=== PATIENT | male | born 1985 | race Caucasian/White ===

== ENCOUNTER → 2017-03-02 | Outpatient (CLI) | payer OTHER ==
--- NOTE | 2017-03-02 08:16 | US ---
EXAMINATION TYPE: US liver DATE OF EXAM: 03/02/2017 7:44 AM COMPARISON: No previous CLINICAL HISTORY: B18.2 Chronic Viral Hep C. Chronic viral hep C EXAM MEASUREMENTS: Liver Length: 15.5 cm Gallbladder Wall: 0.3 cm CBD: 0.3 cm Right Kidney: 10.5 x 4.8 x 5.4 cm Pancreas: wnl Liver: wnl Gallbladder: multiple hyperechoic mobile foci seen Evidence for sonographic Garcia's sign: no CBD: visualized portions wnl, limited by overlying bowel gas Right Kidney: wnl IMPRESSION: 1. Uncomplicated cholelithiasis.
== END | disposition home or self-care (01) ==
LOC: RADUSWWP 07:22
PROVIDERS: ATTEND Internal Medicine Gastroenterology
DX: K80.20 Calculus of gallbladder without cholecystitis without obstruction (principal); B18.2 Chronic viral hepatitis C
CPT/HCPCS: 76705

== ENCOUNTER 2017-03-18 23:11 | Inpatient (IN) | payer MEDICAID, OTHER ==
--- NOTE | 2017-03-18 23:44 | ED ---
Psych HPI - General Chief Complaint: Psychiatric Symptoms Stated Complaint: Mental health Time Seen by Provider: 03/18/17 23:25 Source: patient, RN notes reviewed Mode of arrival: ambulatory - History of Present Illness Initial Comments: 31 yo male presents to the ER with cc of suicidal thoughts. Patient states that he is a heroin drug addict. Patient states that he wants to off the drugs however he has no money so he is making choices that he does not want to me which is making him want to be other than living. Patient states that he has a history of depression that he was diagnosed with depression but did not take Take medication for it. Patient states he did not know where else to turn and that is why he is here.Patient denies any recent fever, chills, shortness of breath, chest pain, back pain, abdominal pain, nausea vomiting, numbness or tingling, dysuria or hematuria, constipation or diarrhea, headaches or visual changes, or any other current symptoms. - Related Data Home Medications Medication Instructions Recorded Confirmed Acyclovir [Zovirax] 200 mg PO TID 03/19/17 03/19/17 Previous Rx's Medication Instructions Recorded Escitalopram [Lexapro] 10 mg PO DAILY #30 tab 03/22/17 Gabapentin [Neurontin] 200 mg PO TID #90 cap 03/22/17 Nicotine 21Mg/24Hr Patch [Habitrol] 1 patch TRANSDERM DAILY #12 patch 03/22/17 Allergies Allergy/AdvReac Type Severity Reaction Status Date / Time No Known Allergies Allergy Verified 03/19/17 04:47 Review of Systems ROS Statement: Those systems with pertinent positive or pertinent negative responses have been documented in the HPI. ROS Other: All systems not noted in ROS Statement are negative. Past Medical History Additional Past Medical History / Comment(s): hep c , History of Any Multi-Drug Resistant Organisms: None Reported Past Surgical History: Orthopedic Surgery Additional Past Surgical History / Comment(s): lt wrist Past Psychological History: Anxiety, Depression Smoking Status: Current every day smoker Past Alcohol Use History: Abuse, Daily Past Drug Use History: Heroin, Opiates, Prescription Drug Abuse General Exam Limitations: no limitations General appearance: alert, in no apparent distress Head exam: Present: atraumatic, normocephalic, normal inspection ENT exam: Present: normal exam, mucous membranes moist Neck exam: Present: normal inspection. Absent: tenderness, meningismus, lymphadenopathy Respiratory exam: Present: normal lung sounds bilaterally. Absent: respiratory distress, wheezes, rales, rhonchi, stridor Cardiovascular Exam: Present: regular rate, normal rhythm, normal heart sounds. Absent: systolic murmur, diastolic murmur, rubs, gallop, clicks Back exam: Present: normal inspection Neurological exam: Present: alert, oriented X3 Psychiatric exam: Present: normal affect, normal mood Skin exam: Present: warm, dry, intact, normal color. Absent: rash Course Vital Signs 03/18/17 03/19/17 23:17 03:09 Temperature 98.9 F 97.0 F L Pulse Rate 77 90 Respiratory 18 18 Rate Blood Pressure 144/87 128/59 O2 Sat by Pulse 100 97 Oximetry - Reevaluation(s) Reevaluation #1: 03/19/17 00:57 This case will be signed out to Dr. Liu. Medical Decision Making - Medical Decision Making 31-year-old male presents to the emergency department with a chief complaint of suicidal thoughts. At this time the patient does not appear to have any acute medical emergencies. The patient is cleared to be evaluated by psychiatry. - Lab Data Result diagrams: 03/19/17 02:09 03/19/17 02:09 Lab Results 03/19/17 03/19/17 03/19/17 Range/Units 00:45 02:09 02:09 WBC 8.8 (3.8-10.6) k/uL RBC 5.08 (4.30-5.90) m/uL Hgb 15.3 (13.0-17.5) gm/dL Hct 45.3 (39.0-53.0) % MCV 89.1 (80.0-100.0) fL MCH 30.1 (25.0-35.0) pg MCHC 33.7 (31.0-37.0) g/dL RDW 13.0 (11.5-15.5) % Plt Count 164 (150-450) k/uL Neutrophils % 69 % Lymphocytes % 21 % Monocytes % 4 % Eosinophils % 4 % Basophils % 0 % Neutrophils # 6.1 (1.3-7.7) k/uL Lymphocytes # 1.8 (1.0-4.8) k/uL Monocytes # 0.4 (0-1.0) k/uL Eosinophils # 0.3 (0-0.7) k/uL Basophils # 0.0 (0-0.2) k/uL Sodium 138 (137-145) mmol/L Potassium 4.1 (3.5-5.1) mmol/L Chloride 103 (98-107) mmol/L Carbon Dioxide 27 (22-30) mmol/L Anion Gap 8 mmol/L BUN 11 (9-20) mg/dL Creatinine 0.90 (0.66-1.25) mg/dL Est GFR (MDRD) Af Amer >60 (>60 ml/min/1.73 sqM) Est GFR (MDRD) Non-Af >60 (>60 ml/min/1.73 sqM) Glucose 130 H (74-99) mg/dL Calcium 9.4 (8.4-10.2) mg/dL TSH (0.465-4.680) mIU/L Urine Opiates Screen Detected H (NotDetected) Ur Oxycodone Screen Not Detected (NotDetected) Urine Methadone Screen Not Detected (NotDetected) Ur Propoxyphene Screen Not Detected (NotDetected) Ur Barbiturates Screen Not Detected (NotDetected) U Tricyclic Antidepress Not Detected (NotDetected) Ur Phencyclidine Scrn Not Detected (NotDetected) Ur Amphetamines Screen Not Detected (NotDetected) U Methamphetamines Scrn Not Detected (NotDetected) U Benzodiazepines Scrn Not Detected (NotDetected) Urine Cocaine Screen Not Detected (NotDetected) U Marijuana (THC) Screen Not Detected (NotDetected) 03/19/17 Range/Units 02:09 WBC (3.8-10.6) k/uL RBC (4.30-5.90) m/uL Hgb (13.0-17.5) gm/dL Hct (39.0-53.0) % MCV (80.0-100.0) fL MCH (25.0-35.0) pg MCHC (31.0-37.0) g/dL RDW (11.5-15.5) % Plt Count (150-450) k/uL Neutrophils % % Lymphocytes % % Monocytes % % Eosinophils % % Basophils % % Neutrophils # (1.3-7.7) k/uL Lymphocytes # (1.0-4.8) k/uL Monocytes # (0-1.0) k/uL Eosinophils # (0-0.7) k/uL Basophils # (0-0.2) k/uL Sodium (137-145) mmol/L Potassium (3.5-5.1) mmol/L Chloride (98-107) mmol/L Carbon Dioxide (22-30) mmol/L Anion Gap mmol/L BUN (9-20) mg/dL Creatinine (0.66-1.25) mg/dL Est GFR (MDRD) Af Amer (>60 ml/min/1.73 sqM) Est GFR (MDRD) Non-Af (>60 ml/min/1.73 sqM) Glucose (74-99) mg/dL Calcium (8.4-10.2) mg/dL TSH 0.854 (0.465-4.680) mIU/L Urine Opiates Screen (NotDetected) Ur Oxycodone Screen (NotDetected) Urine Methadone Screen (NotDetected) Ur Propoxyphene Screen (NotDetected) Ur Barbiturates Screen (NotDetected) U Tricyclic Antidepress (NotDetected) Ur Phencyclidine Scrn (NotDetected) Ur Amphetamines Screen (NotDetected) U Methamphetamines Scrn (NotDetected) U Benzodiazepines Scrn (NotDetected) Urine Cocaine Screen (NotDetected) U Marijuana (THC) Screen (NotDetected) Disposition Clinical Impression: Depression Disposition: TRANSFER TO PSYCH HOSP/UNIT Condition: Stable
[2017-03-19 02:36] LABS: Anion Gap 8 mmol/L; Blood Urea Nitrogen 11 mg/dL (9-20); Calcium 9.4 mg/dL (8.4-10.2); Carbon Dioxide 27 mmol/L (22-30); Chloride 103 mmol/L (98-107); Glucose 130 mg/dL (74-99); Non-African American GFR(MDRD) >60 (>60 ml/min/1.73 sqM); Potassium 4.1 mmol/L (3.5-5.1); Sodium 138 mmol/L (137-145)
[2017-03-19 02:38] LABS: Basophils % (A) 0 %; Eosinophils # (A) 0.3 k/uL (0-0.7); Eosinophils % (A) 4 %; HCT 45.3 % (39.0-53.0); HDW 2.93; HGB 15.3 gm/dL (13.0-17.5); Luc # (Auto) 0.16; Luc % (Auto) 2; Lymphocytes # (A) 1.8 k/uL (1.0-4.8); Lymphocytes % (A) 21 %; MCH 30.1 pg (25.0-35.0); MCHC 33.7 g/dL (31.0-37.0); MCV 89.1 fL (80.0-100.0); Mean Platelet Volume 7.9; Monocytes # (A) 0.4 k/uL (0-1.0); Monocytes % (A) 4 %; Neutrophils # (A) 6.1 k/uL (1.3-7.7); Neutrophils % (A) 69 %; RBC 5.08 m/uL (4.30-5.90); WBC 8.8 k/uL (3.8-10.6); WBC (Perox) 8.85
[2017-03-19] MEDS ORDERED: ZIPRASIDONE 20 MG VIAL IM PRN (04:10)
[2017-03-19] MEDS ORDERED: MAG HYDROX/AL HYDROX/SIMETH 30 ML CUP PO PRN (04:10)
[2017-03-19] MEDS ORDERED: MAGNESIUM HYDROXIDE 2,400 MG/10 ML CUP PO PRN (04:10)
[2017-03-19] MEDS ORDERED: ACETAMINOPHEN TAB 325 MG TAB PO PRN (04:10)
[2017-03-19] MEDS ORDERED: LORazepam 2 MG/ML SYRINGE IM PRN (04:17)
[2017-03-19 04:44] VITALS: BMI 21.3
[2017-03-19] MEDS: ACYCLOVIR 200 MG CAP PO SCH ×3 (08:47→20:46)
[2017-03-19] MEDS: LORazepam 1 MG TAB PO PRN ×3 (08:49→20:47)
[2017-03-19] MEDS: NICOTINE 21MG/24HR PATCH TRANSDERM SCH ×2 (08:49→15:52)
[2017-03-19] MEDS: GABAPENTIN 100 MG CAP PO SCH ×3 (08:49→20:46)
[2017-03-19] MEDS ORDERED: LOPERAMIDE 2 MG CAP PO PRN (15:48)
[2017-03-19] MEDS: ESCITALOPRAM 10 MG TAB PO SCH (15:57)
[2017-03-19] MEDS: cloNIDine HCL 0.1 MG TAB PO PRN ×2 (15:57→20:50)
--- NOTE | 2017-03-19 16:01 | P.HP ---
Psychiatric H&P - . H&P Date: 03/19/17 History & Physical: Allergies Allergy/AdvReac Type Severity Reaction Status Date / Time No Known Allergies Allergy Verified 03/19/17 04:47 Vital Signs Temp 97.8 F 03/19/17 04:07 Pulse 74 03/19/17 04:07 Resp 20 03/19/17 04:07 BP 119/76 03/19/17 04:07 Pulse Ox 97 03/19/17 03:09 Intake & Output 03/18/17 03/19/17 03/19/17 18:59 06:59 18:59 Weight 65.5 kg Laboratory Last Values WBC 8.8 k/uL (3.8-10.6) 03/19/17 02:09 RBC 5.08 m/uL (4.30-5.90) 03/19/17 02:09 Hgb 15.3 gm/dL (13.0-17.5) 03/19/17 02:09 Hct 45.3 % (39.0-53.0) 03/19/17 02:09 MCV 89.1 fL (80.0-100.0) 03/19/17 02:09 MCH 30.1 pg (25.0-35.0) 03/19/17 02:09 MCHC 33.7 g/dL (31.0-37.0) 03/19/17 02:09 RDW 13.0 % (11.5-15.5) 03/19/17 02:09 Plt Count 164 k/uL (150-450) 03/19/17 02:09 Neutrophils % 69 % 03/19/17 02:09 Lymphocytes % 21 % 03/19/17 02:09 Monocytes % 4 % 03/19/17 02:09 Eosinophils % 4 % 03/19/17 02:09 Basophils % 0 % 03/19/17 02:09 Neutrophils # 6.1 k/uL (1.3-7.7) 03/19/17 02:09 Lymphocytes # 1.8 k/uL (1.0-4.8) 03/19/17 02:09 Monocytes # 0.4 k/uL (0-1.0) 03/19/17 02:09 Eosinophils # 0.3 k/uL (0-0.7) 03/19/17 02:09 Basophils # 0.0 k/uL (0-0.2) 03/19/17 02:09 Sodium 138 mmol/L (137-145) 03/19/17 02:09 Potassium 4.1 mmol/L (3.5-5.1) 03/19/17 02:09 Chloride 103 mmol/L (98-107) 03/19/17 02:09 Carbon Dioxide 27 mmol/L (22-30) 03/19/17 02:09 Anion Gap 8 mmol/L 03/19/17 02:09 BUN 11 mg/dL (9-20) 03/19/17 02:09 Creatinine 0.90 mg/dL (0.66-1.25) 03/19/17 02:09 Est GFR (MDRD) Af Amer >60 (>60 ml/min/1.73 sqM) 03/19/17 02:09 Est GFR (MDRD) Non-Af >60 (>60 ml/min/1.73 sqM) 03/19/17 02:09 Glucose 130 mg/dL (74-99) H 03/19/17 02:09 Calcium 9.4 mg/dL (8.4-10.2) 03/19/17 02:09 TSH 0.854 mIU/L (0.465-4.680) 03/19/17 02:09 Urine Opiates Screen Detected (NotDetected) H 03/19/17 00:45 Ur Oxycodone Screen Not Detected (NotDetected) 03/19/17 00:45 Urine Methadone Screen Not Detected (NotDetected) 03/19/17 00:45 Ur Propoxyphene Screen Not Detected (NotDetected) 03/19/17 00:45 Ur Barbiturates Screen Not Detected (NotDetected) 03/19/17 00:45 U Tricyclic Antidepress Not Detected (NotDetected) 03/19/17 00:45 Ur Phencyclidine Scrn Not Detected (NotDetected) 03/19/17 00:45 Ur Amphetamines Screen Not Detected (NotDetected) 03/19/17 00:45 U Methamphetamines Scrn Not Detected (NotDetected) 03/19/17 00:45 U Benzodiazepines Scrn Not Detected (NotDetected) 03/19/17 00:45 Urine Cocaine Screen Not Detected (NotDetected) 03/19/17 00:45 U Marijuana (THC) Screen Not Detected (NotDetected) 03/19/17 00:45 03/19/17 15:49 IDENTIFYING DATA: 31-year-old single male patient HPI: Patient admitted to the inpatient psychiatric unit on a voluntary basis. He states that he was trying to stop using heroin and alcohol and he couldn't get into detox. He says that he had thoughts that he would rather than live like that. he was admitted to the inpatient psychiatric unit for concerns of his safety. He says it's almost 24 hours since he used heroin. He relates that his mood recently was getting agitated and he found himself apologizing to people. He admits to being a worrier and worries a lot. He does admit to some history of depression and some history of panic attacks in the past. PAST PSYCHIATRIC HISTORY: He has been to [facility] in the past for anxiety and depression, saw a counselor a few times. He has not had any history of inpatient psychiatric treatment. Says he has had overdose of heroin a few times as a suicide attempt. He thinks that he took Zoloft as a teenager PMH: Hepatitis C ALLERGIES: no known ALLERGIES MEDICATIONS: Tylenol When necessary, Zovirax, Maalox when necessary, Neurontin, Ativan when necessary, milk of magnesia when necessary, Habitrol, Geodon when necessary CHEMICAL DEPENDENCY HISTORY: Patient reports that he was using heroin daily. He had 6 months clean and then relapsed a couple of months ago. He has been to [facility] in the past. He has been drinking alcohol between 2 pints and a fifth. He denies any significant alcohol withdrawal symptoms other than a little bit shaky and states he is having some hot flashes and cold flashes from heroin withdrawal. FAMILY PSYCHIATRIC HISTORY: None significant known. FAMILY CHEMICAL DEPENDENCY HISTORY: Father with alcoholism SOCIAL HISTORY: Lives in an apartment on his own. He works for [employer]. Was working 7 days a week at one point and now 5 days a week. He is single he has a 2-1/2-year-old son. He still does date his son's mom. He does not have any siblings. MENTAL STATUS EXAM: He is alert and cooperative with the interview. His speech is fluent, not rapid or pressured. His thought processes are organized. His mood is described as "doing okay for the circumstances." He relates that he had been having some thoughts that he would rather than live like he was, denies any current thoughts of harm to self or others. He denies any auditory or visual hallucinations. He denies any paranoid thoughts. No active evidence of psychosis. I do not note any significant disorientation or memory disturbance. His insight is adequate, judgment shows evidence of recent impairment. STRENGTHS/WEAKNESSES: Strengths-employed, seeking treatment; weaknesses-coping skills INTELLECTUAL FUNCTIONING: Average IMPRESSIONS: Unspecified depressive disorder; unspecified anxiety disorder; opioid use disorder; alcohol use disorder PLAN: Patient be admitted to the inpatient psychiatric unit [facility] on a voluntary basis. He'll be placed on SP 15 minute precautions. Baseline laboratory workup done the patient and medical consultation will be ordered. We'll initiate Lexapro 10 more grams daily for depression and anxiety components. Ordered clonidine and Imodium when necessary's for opioid withdrawal symptoms. We did discuss treatment option of looking at going into rehab/detox after he has been stabilized in the inpatient psychiatric unit. We will monitor for any opioid/alcohol withdrawal symptoms. He is on Ativan as needed for any alcohol withdrawal. Dr. Bueno will initiate care this patient starting on Tuesday. We'll continue to cover this patient for Dr. Bueno through the weekend. Estimated length of stay 3-5 days. Prognosis is guarded.
--- NOTE | 2017-03-19 19:28 | CONS ---
DATE OF CONSULTATION: Patient is a 31-year-old is admitted for suicidal ideations. REASON FOR CONSULTATION: Heroin addict and consult for heroin withdrawal. Patient is a 31-year-old admitted to the hospital with suicidal ideations and patient last heroin was yesterday. The patient has history of hepatitis C. Patient is concerned that he may have heroin withdrawals. Patient denied any diarrhea. Patient is not excessively sweating. Patient does not have any other withdrawals and patient pupils are equally reacting and patient does not have any ( ). Although patient is requesting for opiates for withdrawals, patient at this point of time, does not have any withdrawals. My recommendations is to watch for withdrawals. If she has any withdrawals, then we can address with intravenous opiates and patient states he is an alcoholic as well started drinking alcohol about 3 months ago and did not give me exact. Patient drinks about a fifth of whiskey. He is concerned about those withdrawals as well. We will watch for alcohol withdrawals as well. Patient does have a history of prescription drug abuse and heavy smoker. The patient does shingles in the buttock and urogenital area. Although patient declined any genitourinary examination. The patient denied any fever, chills. Patient denied any nausea or vomiting at this point of time. REVIEW OF SYSTEMS: CONSTITUTIONAL: No fever, no malaise, no fatigue. HEENT: No recent visual problems or hearing problems. Denied any sore throat. CARDIOVASCULAR: No chest pain, orthopnea, PND, no palpitations, no syncope. PULMONARY: No shortness of breath, no cough, no hemoptysis. GASTROINTESTINAL: No diarrhea, no nausea, no vomiting, no abdominal pain. Normoactive bowel sounds. NEUROLOGICAL: No headaches, no weakness, no numbness. HEMATOLOGICAL: Denies any bleeding or petechiae. GENITOURINARY: Denies any burning micturition, frequency, or urgency. MUSCULOSKELETAL/RHEUMATOLOGICAL: Denies any joint pain, swelling, or any muscle pain. ENDOCRINE: Denies any polyuria or polydipsia. The rest of the 14 point review of systems is negative. ALLERGIES: No known drug allergies. PAST MEDICAL HISTORY: Significant for hepatitis C, herpes genitalis. SOCIAL HISTORY: As mentioned above. FAMILY HISTORY: Significant for depression in the family. PHYSICAL EXAMINATION: VITAL SIGNS: Temperature 97.8, pulse of 90, respiratory rate of 20, blood pressure is 128/59, saturating at 97% on room air. GENERAL: The patient is alert and oriented x3, not in any acute distress. Well developed, well nourished. HEENT: Pupils are round and equally reacting to light. EOMI. No scleral icterus. No conjunctival pallor. Normocephalic, atraumatic. No pharyngeal erythema. No thyromegaly. CARDIOVASCULAR: S1 and S2 present. No murmurs, rubs, or gallops. PULMONARY: Chest is clear to auscultation, no wheezing or crackles. ABDOMEN: Soft, nontender, nondistended, normoactive bowel sounds. No palpable organomegaly. MUSCULOSKELETAL: No joint swelling or deformity. EXTREMITIES: No cyanosis, clubbing, or pedal edema. NEUROLOGICAL: Gross neurological examination did not reveal any focal deficits. SKIN: No rashes. Genitourinary: Deferred by the patient. LABORATORY DATA: CBC, CMP, essentially within normal limits. IMPRESSION: 1. Opiate overdose, and patient does have history of hepatitis C and patient is supposed to see a correctional supervisor lieutenant as an outpatient which patient was advised to see a correctional supervisor lieutenant. 2. Genital herpes for which ( ) can be continued and patient will need to follow up with recurrence of herpes. If the patient does not have any improvement, may consider using valacyclovir and recommend to continue Neurontin for pain and burning sensation for that. 3. Opiate overdose and concern of opiate withdrawals. Management as mentioned above. 4. Alcohol withdrawal concerns management as mentioned in the interval history. 5. Suicidal ideations and depression, management as per primary service. Thank you letting me participate in the patient's care. Will continue to follow the patient on an as-needed basis. The patient ( ). I instructed the nursing staff about the symptoms of opiate withdrawals and if he has any symptoms, the nursing staff was instructed to call the medicine service supervisor display fabrication so that opiate withdrawal symptoms can be addressed or alcohol withdrawal symptoms can be addressed.
[2017-03-19] MEDS ORDERED: traZODone HCL 50 MG TAB PO PRN (21:05)
[2017-03-20] MEDS: ACYCLOVIR 200 MG CAP PO SCH ×3 (08:07→21:19)
[2017-03-20] MEDS: GABAPENTIN 100 MG CAP PO SCH ×3 (08:09→21:19)
[2017-03-20] MEDS: ESCITALOPRAM 10 MG TAB PO SCH (08:09)
[2017-03-20] MEDS: LORazepam 1 MG TAB PO PRN ×3 (08:09→22:28)
[2017-03-20] MEDS: NICOTINE 21MG/24HR PATCH TRANSDERM SCH (08:09)
[2017-03-20] MEDS: cloNIDine HCL 0.1 MG TAB PO PRN (12:00)
--- NOTE | 2017-03-20 16:37 | P.PN ---
Progress Note - Text Interval history: Patient seen in cross coverage today in for Dr. Bueno. He reports that this withdrawal episode for him has been better compared to other withdrawal episodes. He does describe that he is having difficulty with sleep. He states that he's had adverse reaction to trazodone the past so did not take that last night. He reports that he has been on Remeron the past which seemed to be very tolerable and we discussed and he would like to retrial that. He says his mood was struggling a couple of hours ago but now it is doing better. he makes reference to having a court hearing tomorrow at 240. Mental status exam: He is alert and cooperative. Speech is fluent, not rapid or pressured. Thought processes are organized. He denies any thoughts of harm to self or others. No evidence of psychosis or agitation. Mood overall appears to be improved. Plan: At this time we will discontinue Lexapro and initiate Remeron to see if this can help with insomnia, depression as well as component of anxiety. Dr. Garay will initiate care this patient starting tomorrow. Would look for discharge planning soon.
[2017-03-20] MEDS ORDERED: MIRTAZAPINE 15 MG TAB PO SCH (21:00)
[2017-03-21] MEDS: NICOTINE 21MG/24HR PATCH TRANSDERM SCH (08:19)
[2017-03-21] MEDS: GABAPENTIN 100 MG CAP PO SCH ×3 (08:20→21:21)
[2017-03-21] MEDS: ACYCLOVIR 200 MG CAP PO SCH ×3 (08:20→21:21)
[2017-03-21] MEDS: LORazepam 1 MG TAB PO PRN ×3 (08:20→21:22)
--- NOTE | 2017-03-21 09:27 | P.PN ---
Progress Note - Text Interval history: The patient is found in the hallway he follows me to an interview room. I reviewed the psychiatric evaluation and the subsequent progress note. The patient was admitted with suicidal ideation in the context of anticipating severe opiate and alcohol withdrawal. The patient had been clean for 7 months he relapsed 1 month ago and states he was out of money and could not get his next fix. Knowing that he would go through withdrawal he felt hopeless and suicidal and presented to the emergency room. He feels that his detoxes gone better than he thought it would. He was started on Lexapro initially then placed on Remeron. He states that he does not wish to take Remeron would like to go back on the Lexapro. We discussed that he needs to infrequently use Ativan unless it's for alcohol withdrawal symptoms. He states he is improving and feeling more future oriented again. Mental status exam: The patient is a thin male he is balding he is dressed in his own clothing eye contact is appropriate. He reports his mood is beginning to improve. He feels safe in the hospital. He states he was successful this weekend because he was locked here and couldn't leave. He reports no homicidal ideation he is endorsing no auditory or visual hallucinations no specific delusions. He does not appear hypomanic or manic. He demonstrates no psychomotor agitation no verbal or physical aggressiveness noted from his activity. Vital signs reviewed. He is oriented to person place and date. Affect is constricted. Thought process linear. Plan: The patient will be restarted on the Lexapro starting tomorrow we will discontinue the Remeron. He will continue on Neurontin. I anticipate he will be appropriate for discharge as early as tomorrow. Social work will arrange a support meeting if possible. We'll continue to monitor his vitals and monitor him for safety in general
[2017-03-22 06:48] VITALS: BP 126/76; PULSE 82; RESP 16; TEMP 98
[2017-03-22] MEDS ORDERED: ESCITALOPRAM 10 MG TAB PO SCH (09:00)
--- NOTE | 2017-03-22 09:03 | P.DS ---
Providers Date of admission: 03/19/17 03:09 Expected date of discharge: 03/22/17 Attending physician: Sherman Bueno Consults: 03/19/17 04:10 Consult Physician Routine Consulting Provider: Liz Stapleton Consult Reason/Comments: H & P and medical follow up Do you want consulting provider notified?: Yes, Notify in am Primary care physician: Colleen Dale - Discharge Diagnosis(es) (1) Depression Current Visit: Yes Status: Acute Priority: High (2) Anxiety Current Visit: Yes Status: Acute Priority: Medium (3) Opiate dependence Current Visit: Yes Status: Acute Priority: High Hospital Course: Brief summary of admission note: This patient is a 31-year-old single male who was admitted to the mental health unit by Dr. Downing. The patient reported acute suicidal ideation in the context of impending opiate withdrawal. Dissipated becoming very physically sick and felt he could not handle is alone safely. He made efforts to get admitted to a detox center which were unsuccessful and he presented to the emergency room. For full detail presents referred to Dr. Downing's psychiatric evaluation. Summary of hospital course: The patient was admitted to the mental health unit voluntarily. He was initially seen by Dr. Downing. The patient was started on Lexapro but this was quickly discontinued and replaced with Remeron. I assumed care of the patient starting yesterday. The patient states that he had she did not like the Remeron and would prefer to go back on Lexapro. We did make that change and we discussed the potential benefits and side effects of Lexapro. The medication was initiated to address depressive and anxiety symptoms. Yesterday the patient reported feeling much better today he states that he is doing well. He was surprised that the opiate withdrawal was not as severe as he anticipated. He is not interested in and patient chemical dependency treatment. He prefers to address his substance use as an outpatient and he will attend NA/AA. He underwent a routine medical exam with the public improvement inspector. He demonstrated no agitated behavior. Social work is attempting to arrange a phone support meeting as he states no one is able to come to the unit and person. The patient had been previously treated with Neurontin and that medication was continued. Mental status exam: The patient is alert he seated calmly eye contact is appropriate speech is fluent and spontaneous nonpressured. He presents with good hygiene grooming is dressed in his own clothing. He endorses a mood that is "good" affect is euthymic and congruent to reported mood. He reports no hopelessness thinking he reports no suicidal or homicidal ideation intent or plan. He endorses no auditory or visual hallucinations he endorses no specific delusions. There is no evidence of psychosis. He endorses no racing thoughts or any other hypomanic or manic symptoms he does not appear hypomanic or manic. He demonstrates no tangential thinking loose associations or flight of ideas. Insight and judgment improved. Cognitively he is oriented to person place and date. He demonstrates no verbal or physical aggressiveness. Impressions 1. Depression and specified rule out major depressive disorder, anxiety and specified rule out generalized anxiety disorder, opiate use disorder, alcohol use disorder 2. Psychosocial dysfunction secondary to substance use Plan: The patient will be discharged mental health unit today. Social work will arrange a support meeting which may occur via phone due to limitations. Social work will also arrange outpatient mental health follow-up. The patient does not wish to participate in inpatient chemical dependency treatment and plans on addressing his substance use issues as an outpatient and also utilizing self-help group, synthetically AA/NA. He will continue on "10 mg daily Neurontin 200 mg 3 times daily. There is no imminent safety risk he is appropriate for transition back to outpatient care. He is instructed to use no alcohol marijuana or any other illicit drugs. He is instructed to return to the hospital with any acute safety concerns. Patient Condition at Discharge: Stable Plan - Discharge Summary New Discharge Prescriptions: Escitalopram [Lexapro] 10 mg PO DAILY #30 tab Gabapentin [Neurontin] 200 mg PO TID #90 cap Nicotine 21Mg/24Hr Patch [Habitrol] 1 patch TRANSDERM DAILY #12 patch Discharge Medication List Acyclovir [Zovirax] 200 mg PO TID 03/19/17 [History] Escitalopram [Lexapro] 10 mg PO DAILY #30 tab 03/22/17 [Rx] Gabapentin [Neurontin] 200 mg PO TID #90 cap 03/22/17 [Rx] Nicotine 21Mg/24Hr Patch [Habitrol] 1 patch TRANSDERM DAILY #12 patch 03/22/17 [ Rx] Follow up Appointment(s)/Referral(s): Colleen Dale MD [Primary Care Provider] - 1 Week
[2017-03-22] MEDS: ACYCLOVIR 200 MG CAP PO SCH (09:30)
[2017-03-22] MEDS: GABAPENTIN 100 MG CAP PO SCH (09:32)
[2017-03-22] MEDS: NICOTINE 21MG/24HR PATCH TRANSDERM SCH (09:32)
[2017-03-22] MEDS: LORazepam 1 MG TAB PO PRN (09:32)
== END 2017-03-22 10:35 | disposition home or self-care (01) | DRG 881 ==
LOC: EC 23:11 → 3MHU 03-19 03:09
PROVIDERS: ADMIT Psychiatry & Neurology Psychiatry; ATTEND Psychiatry & Neurology Psychiatry
DX: F32.9 Major depressive disorder, single episode, unspecified (principal); B02.9 Zoster without complications; R45.851 Suicidal ideations; F10.239 Alcohol dependence with withdrawal, unspecified; F11.23 Opioid dependence with withdrawal; A60.00 Herpesviral infection of urogenital system, unspecified; F17.200 Nicotine dependence, unspecified, uncomplicated; F41.0 Panic disorder [episodic paroxysmal anxiety]; Z79.899 Other long term (current) drug therapy; Z81.8 Family history of other mental and behavioral disorders
CPT/HCPCS: 36415; 80048; 80306; 82075; 84443; 85025; 99285

== ENCOUNTER 2017-04-17 22:48 | Inpatient (IN) | payer MEDICAID, OTHER ==
--- NOTE | 2017-04-18 00:02 | ED ---
Psych HPI - General Chief Complaint: Psychiatric Symptoms Stated Complaint: mental health Time Seen by Provider: 04/17/17 23:11 Source: patient, RN notes reviewed Mode of arrival: ambulatory - History of Present Illness Initial Comments: This is a 31-year-old male with a history of known drug abuse history who is a heroin addict who states he is feeling depressed suicidal. He states he is some about overdosing or running out in traffic. He is despondent because of heroin addiction he was. He feels like he can't. He feels like a failure wants to kill himself. He denies any other complaints fevers chills sweats or other symptoms. Patient does also admit he is hepatitis C positive MD Complaint: suicidal ideation, feels depressed, other - Related Data Home Medications Medication Instructions Recorded Confirmed Acyclovir [Zovirax] 200 mg PO TID 03/19/17 03/19/17 Previous Rx's Medication Instructions Recorded Escitalopram [Lexapro] 10 mg PO DAILY #30 tab 03/22/17 Gabapentin [Neurontin] 200 mg PO TID #90 cap 03/22/17 Nicotine 21Mg/24Hr Patch [Habitrol] 1 patch TRANSDERM DAILY #12 patch 03/22/17 Allergies Allergy/AdvReac Type Severity Reaction Status Date / Time No Known Allergies Allergy Verified 04/17/17 22:53 Review of Systems ROS Statement: Those systems with pertinent positive or pertinent negative responses have been documented in the HPI. ROS Other: All systems not noted in ROS Statement are negative. Past Medical History Additional Past Medical History / Comment(s): hep c , History of Any Multi-Drug Resistant Organisms: None Reported Past Surgical History: Orthopedic Surgery Additional Past Surgical History / Comment(s): lt wrist Past Anesthesia/Blood Transfusion Reactions: No Reported Reaction Past Psychological History: Anxiety, Depression Smoking Status: Current every day smoker Past Alcohol Use History: Abuse, Daily Past Drug Use History: Heroin, Opiates, Prescription Drug Abuse General Exam - General Exam Comments Initial Comments: This is a well-developed well-nourished awake alert oriented 3 male he is somewhat anxious Limitations: no limitations General appearance: alert, in no apparent distress Head exam: Present: atraumatic, normocephalic, normal inspection Eye exam: Present: normal appearance, PERRL, EOMI. Absent: scleral icterus, conjunctival injection, periorbital swelling ENT exam: Present: normal exam, mucous membranes moist Neck exam: Present: normal inspection. Absent: tenderness, meningismus, lymphadenopathy Respiratory exam: Present: normal lung sounds bilaterally. Absent: respiratory distress, wheezes, rales, rhonchi, stridor Cardiovascular Exam: Present: regular rate, normal rhythm, normal heart sounds. Absent: systolic murmur, diastolic murmur, rubs, gallop, clicks GI/Abdominal exam: Present: soft, normal bowel sounds. Absent: distended, tenderness, guarding, rebound, rigid Extremities exam: Present: full ROM, normal capillary refill, other (He does demonstrate some evidence of track dominguez in his arms.). Absent: tenderness, pedal edema, joint swelling, calf tenderness Back exam: Present: normal inspection Neurological exam: Present: alert, oriented X3, CN II-XII intact Psychiatric exam: Present: depressed, suicidal ideation Skin exam: Present: warm, dry, intact, normal color, other (Previous track dominguez as stated above). Absent: rash Course Vital Signs 04/17/17 22:51 Temperature 97.1 F L Pulse Rate 68 Respiratory 18 Rate Blood Pressure 136/79 O2 Sat by Pulse 99 Oximetry Medical Decision Making - Medical Decision Making The patient was evaluated by psychiatric service and will be admitted for treatment. Disposition Clinical Impression: Suicidal ideation, Depression, Opiate dependence Disposition: TRANSFER TO PSYCH HOSP/UNIT Condition: Stable Referrals: Colleen Dale MD [Primary Care Provider] - 1-2 days
[2017-04-18] MEDS ORDERED: MAGNESIUM HYDROXIDE 2,400 MG/10 ML CUP PO PRN (03:33)
[2017-04-18] MEDS ORDERED: MAG HYDROX/AL HYDROX/SIMETH 30 ML CUP PO PRN (03:33)
[2017-04-18] MEDS ORDERED: ZIPRASIDONE 20 MG VIAL IM PRN (03:33)
[2017-04-18] MEDS ORDERED: ACETAMINOPHEN TAB 325 MG TAB PO PRN (03:33)
[2017-04-18 04:18] VITALS: BMI 20.7
[2017-04-18] MEDS ORDERED: ESCITALOPRAM 10 MG TAB PO SCH (09:00)
[2017-04-18] MEDS: GABAPENTIN 100 MG CAP PO SCH ×3 (09:40→21:35)
[2017-04-18] MEDS: NICOTINE 21MG/24HR PATCH TRANSDERM SCH (09:40)
[2017-04-18] MEDS: hydrOXYzine PAMOATE 25 MG CAP PO PRN ×2 (09:50→16:49)
[2017-04-18] MEDS: cloNIDine HCL 0.1 MG TAB PO PRN (09:50)
--- NOTE | 2017-04-18 10:54 | P.HP ---
Psychiatric H&P - . History & Physical: Allergies Allergy/AdvReac Type Severity Reaction Status Date / Time No Known Allergies Allergy Verified 04/18/17 04:20 Vital Signs Temp 97.9 F 04/18/17 04:05 Pulse 71 04/18/17 09:51 Resp 16 04/18/17 09:51 BP 135/80 04/18/17 09:51 Pulse Ox 96 04/18/17 02:48 Intake & Output 04/17/17 04/18/17 04/18/17 18:59 06:59 18:59 Weight 63.866 kg Laboratory Last Values Urine Opiates Screen Detected (NotDetected) H 04/18/17 02:41 Ur Oxycodone Screen Not Detected (NotDetected) 04/18/17 02:41 Urine Methadone Screen Not Detected (NotDetected) 04/18/17 02:41 Ur Propoxyphene Screen Not Detected (NotDetected) 04/18/17 02:41 Ur Barbiturates Screen Not Detected (NotDetected) 04/18/17 02:41 U Tricyclic Antidepress Not Detected (NotDetected) 04/18/17 02:41 Ur Phencyclidine Scrn Not Detected (NotDetected) 04/18/17 02:41 Ur Amphetamines Screen Not Detected (NotDetected) 04/18/17 02:41 U Methamphetamines Scrn Not Detected (NotDetected) 04/18/17 02:41 U Benzodiazepines Scrn Not Detected (NotDetected) 04/18/17 02:41 Urine Cocaine Screen Not Detected (NotDetected) 04/18/17 02:41 U Marijuana (THC) Screen Not Detected (NotDetected) 04/18/17 02:41 04/18/17 10:22 IDENTIFYING DATA: This patient is a 31-year-old single male who was admitted to the mental health unit through the emergency room for suicidal ideation. HPI: The patient presents stating he has acute suicidal thoughts. He reported he relapsed on heroin again and states if he leaves the hospital he will kill himself using heroin. He states he cannot tolerate the withdrawal and needs to be in a safe environment. He states that he would've rather gone to a detox center that utilizes Suboxone or methadone but that was not available to him at the time of his presentation. He has a history of depressive symptoms he reports he complied with the Lexapro upon discharge from his last hospitalization however he was also using heroin. He relapsed with heroin approximately 3-4 days after being discharged from this facility last month. He currently feels agitated irritable hopeless low energy and poor appetite with restless sleep. No history of hypomanic or manic episodes. He endorses anxiety being heightened during this time. He is a history of panic attacks in the past but none recent. He reports no homicidal ideation. He reports no access to firearms. PAST PSYCHIATRIC HISTORY: The patient was on this mental health unit last month. He has been to [facility] in the past it does not appear he followed up upon discharge from last hospitalization. He has had a suicide attempt in the past via heroin overdose. He has been treated with Lexapro which he thinks may provide some benefit for mood symptoms. He has tried Zoloft in the past as well as Remeron. He states Remeron gave him restless leg symptoms. PMH: Hepatitis C ALLERGIES: NO KNOWN DRUG ALLERGIES MEDICATIONS: As above CHEMICAL DEPENDENCY HISTORY: Opiate use disorder he has been using heroin daily intravenously. It appears his longest sobriety has been approximate 6 months. He states he has been in inpatient rehab 12 times in the past. He does have a history of overusing alcohol on the past. 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 He has been employed there approximate 6 months. He has a 2-1/2-year-old son, he has no siblings. No history of service. No reported abuse history, legal history unknown MENTAL STATUS EXAM: The patient is a male appearing his stated age, he is disheveled he is dressed in a hospital gown. Eye contact is intermittent. He frequently moves position while seated in his chair he demonstrates no verbal or physical aggressiveness. He appears mildly agitated but in a nonthreatening manner. Mood is depressed hopeless. He has a dysphoric affect. He reports ongoing suicidal thoughts with no homicidal ideation. He endorses no auditory or visual hallucinations or specific delusions there is no evidence of psychosis. He does not appear hypomanic or manic. He is oriented to person place and date he is able to spell world backwards. STRENGTHS/WEAKNESSES: He is: Willingness to participate in help voluntarily, housing, employment weaknesses: Ongoing relapses with heroin use INTELLECTUAL FUNCTIONING: Average IMPRESSIONS: [] 1. Major depressive disorder recurrent, anxiety unspecified, opiate use disorder, alcohol use disorder 2. Ongoing psychosocial dysfunction due to opiate use disorder PLAN: The patient has been admitted to the mental health unit he has signed in voluntarily. We reviewed medication options we decided to titrate the Lexapro to 20 mg daily. We will symptomatically manage opiate withdrawal symptoms. Ativan is available while hospitalized for anxiety symptoms that are acute. He will be seen by the inspector receiving for routine history and physical exam. We discussed having him participate again in inpatient chemical dependency treatment but at this time he is not interested. We will readdress the issue during the hospitalization. He is encouraged to participate in the milieu we will monitor him for safety. 04/18/17 10:52
[2017-04-18] MEDS: LORazepam 1 MG TAB PO PRN (16:51)
--- NOTE | 2017-04-18 23:19 | CONS ---
DATE OF CONSULTATION: REASON FOR CONSULTATION: Medical history and physical examination. REASON FOR ADMISSION: Heroin overdose. HISTORY OF PRESENT ILLNESS: This is a 31-year-old gentleman comes in the hospital with some suicidal ideation and recent overdose of heroin. Patient states that he was admitted to the hospital multiple times with heroin withdrawal. The patient noted some suicidal ideation. Has used heroin over the last few days. States he is undergoing withdrawal, comes in the hospital. Patient at the time of my evaluation states he is tearful, is sleepy. He states to have a mild headache, is extremely tired and had some abdominal pain as well. Denies having any suicidal or homicidal ideation at the time of my evaluation. No fevers, chills, nausea or diarrhea is appreciated. REVIEW OF SYSTEMS: 14 point review of systems was done and none pertinent other than what was mentioned above. PAST MEDICAL HISTORY: Depression and polysubstance use. PAST SURGICAL HISTORY: None. MEDICATIONS: At home, patient does not take any medications that were previously prescribed. SOCIAL HISTORY: Was using heroin recently, ongoing tobacco use and history of alcohol use as well. FAMILY HISTORY: Not pertinent to current admission. PHYSICAL EXAM: VITALS: Temperature 97.9, heart rate 69, respiratory rate 18, blood pressure 115/72. Saturating 96% on room air. The patient appears to be tired, yawning and appears to be tearing extremely. HEENT: Atraumatic, normocephalic. Pupils equal, round, and react to light and accommodation. LUNGS: Good air movement. Clear to auscultation. No rhonchi, wheezing or crackles. HEART: S1, S2 heard. Regular rate and rhythm. No murmurs appreciated. NEURO: No focal motor or sensory deficits noted. No dysdiadochokinesia noted. Motor strength is 5/5 in all 4 extremities. ABDOMEN: Soft, nontender, no organomegaly. Laboratory data was reviewed. ASSESSMENT AND PLAN: 1. Acute opioid withdrawal. 2. Ongoing tobacco use. PLAN: Patient physical exam was within normal limits. Continue current medications including clonidine for withdrawal symptoms. The patient verbalized that he would like to quit using heroin and denies having a suicidal ideation at this time. Thank you for the consultation. No further tests are recommended. Will follow patient intermittently. Please call with questions or concerns.
--- NOTE | 2017-04-19 09:45 | P.PN ---
Progress Note - Text Interval history: The patient is found in his room he follows me to an interview room. He feels that he is getting through the peak of his opiate withdrawal at this time. He reports yesterday vomiting having some diarrhea. He is offered medications to treat those symptoms but he declines. He reports he was able to eat some breakfast this morning but did not eat much yesterday. He finds himself excessively yawning he has some rhinorrhea and goosebumps. We again discussed precipitating events causing this admission. He knows that he struggles with remaining sober from heroin use. We discussed the possibility of having him go to inpatient chemical dependency treatment again but he declined that option. He states he has a sponsor and will just attend meetings and he needs to get back to work. Mental status exam: The patient is alert he has a disheveled appearance he is dressed in 2 hospital gowns. Eye contact is appropriate speech is fluent spontaneous nonpressured. He reports his mood is better he feels safe. He feels more in control now that he is getting through the opiate withdrawal symptoms. He is endorsing no acute suicidal or homicidal ideation intent or plan. He is reporting no auditory or visual hallucinations no specific delusions. There is no overt evidence of psychosis. He does not appear hypomanic or manic. Insight and judgment improving. He remains oriented to person place and date. He demonstrates no verbal or physical aggressiveness. Plan: The patient will continue on the left pro 20 mg daily. He appears to be stabilizing. Opiate withdrawal symptoms are just starting to improve. His acute safety risk appears to be diminishing. I expect he'll be appropriate for discharge as soon as tomorrow. He is encouraged to reconsider inpatient chemical dependency treatment but he has decided he will not pursue that course of treatment. He is willing to follow-up with professional counseling Center upon discharge. Vital signs reviewed. We will continue to monitor him for safety and encourage his participation in the milieu. I will dictate a discharge summary in anticipation of a discharge tomorrow.
[2017-04-19] MEDS: ESCITALOPRAM 20 MG TAB PO SCH (09:48)
[2017-04-19] MEDS: GABAPENTIN 100 MG CAP PO SCH ×3 (09:48→22:24)
[2017-04-19] MEDS: NICOTINE 21MG/24HR PATCH TRANSDERM SCH (09:48)
[2017-04-19] MEDS: LORazepam 1 MG TAB PO PRN ×2 (09:51→16:44)
[2017-04-19] MEDS: cloNIDine HCL 0.1 MG TAB PO PRN ×2 (09:52→16:45)
--- NOTE | 2017-04-19 09:59 | P.DS ---
Providers Date of admission: 04/18/17 02:39 Expected date of discharge: 04/20/17 Attending physician: Sherman Bueno Consults: 04/18/17 03:33 Consult Physician Routine Consulting Provider: Liz Stapleton Consult Reason/Comments: H & P and medical follow up Do you want consulting provider notified?: Already Contacted Primary care physician: Colleen Dale - Discharge Diagnosis(es) (1) Major depressive disorder, recurrent Current Visit: Yes Status: Acute Priority: High (2) Anxiety disorder, unspecified Current Visit: Yes Status: Acute Priority: Medium (3) Opiate dependence Current Visit: Yes Status: Acute Priority: High (4) Alcohol use disorder Current Visit: Yes Status: Acute Priority: Medium Hospital Course: Brief summary of admission note: This patient is a 31-year-old single male who was admitted to the mental health unit through the emergency room for suicidal ideation. He presented reporting acute suicidal ideation in the context of a recent heroin relapse and fear of withdrawal symptoms. He stated that if he left the hospital he would kill himself with a heroin overdose. He reports a previous history of depression including lack of motivation impaired sleep impaired appetite and feeling hopeless. The patient was previously on this mental health unit last month under similar circumstances. For full details please refer to my psychiatric evaluation dated 04/18/2017. Summary of hospital course: The patient was admitted to the mental health unit he signed in voluntarily. We reviewed his presenting symptoms and medication options. After our discussion he felt that Lexapro was providing some benefit and we decided to titrate the dose further to 20 mg daily. He acknowledged that the medications affect is somewhat limited because of his recent relapse. The patient underwent a routine history and physical exam. We offered to treat opiate withdrawal symptoms symptomatically. He isolated in his room attended some meals but for the most part did not attend groups. We encouraged him to reconsider attending inpatient chemical dependency treatment but he is not interested. He is hoping to follow up at professional counseling Center upon discharge and will follow with his sponsor and go to NA meetings. He demonstrated future oriented thinking in that he wanted to return to work. He demonstrated no overt agitated behavior he was directable. I anticipate he will be appropriate for discharge on 04/20/2017. The patient will be evaluated tomorrow by either Dr. Nixon or Dr. Omalley prior to discharge. Mental status exam: Refer to progress note dated 04/19/2017. Impressions 1. Major depressive disorder recurrent moderate to severe, anxiety unspecified , opiate use disorder, alcohol use disorder 2. Ongoing psychosocial dysfunction due to opiate use disorder Plan: We will plan for discharge tomorrow 04/20/2017. He will return home to his own residence. Social work will arrange outpatient mental health follow-up he is requesting professional counseling Center if possible. He will continue on Lexapro 20 mg daily. He does not wish to participate in inpatient chemical dependency treatment to address his substance use issues he will meet with his sponsor go to NA meetings and follow up with outpatient mental health services. The patient appears to have stabilized and is appropriate for transition to outpatient care. He will be assessed again tomorrow prior to discharge. He is instructed to return to the hospital with any acute safety concerns. Patient Condition at Discharge: Stable Plan - Discharge Summary New Discharge Prescriptions: New Escitalopram [Lexapro] 20 mg PO DAILY #30 tab Nicotine 21Mg/24Hr Patch [Habitrol] 1 patch TRANSDERM DAILY #12 patch Continue Gabapentin [Neurontin] 200 mg PO TID #60 cap Discontinued Escitalopram [Lexapro] 10 mg PO DAILY #30 tab Nicotine 21Mg/24Hr Patch [Habitrol] 1 patch TRANSDERM DAILY #12 patch Discharge Medication List Escitalopram [Lexapro] 20 mg PO DAILY #30 tab 04/19/17 [Rx] Gabapentin [Neurontin] 200 mg PO TID #60 cap 04/19/17 [Rx] Nicotine 21Mg/24Hr Patch [Habitrol] 1 patch TRANSDERM DAILY #12 patch 04/19/17 [ Rx] Follow up Appointment(s)/Referral(s): Colleen Dale MD [Primary Care Provider] - 1-2 days
[2017-04-19] MEDS: ACYCLOVIR 200 MG CAP PO SCH (22:24)
[2017-04-20] MEDS: LORazepam 1 MG TAB PO PRN ×2 (02:14→10:07)
[2017-04-20 03:17] VITALS: BP 112/76; PULSE 121; RESP 18; TEMP 97.7
--- NOTE | 2017-04-20 08:27 | P.PN ---
Progress Note - Text Interval history: I saw patient cross covering DR Bueno, patient denies any depressive symptoms ,denies any opium withdrawals symptoms. We discussed the possibility of having him go to inpatient chemical dependency treatment again but he declined that option. He states he has a sponsor and will just attend meetings and he needs to get back to work.He talked about his children mother who has been very supportive,discussed in detail negative impact of his addiction on his physical and mental health and he verbalized understanding Mental status exam: The patient is alert ,fair grooming. Eye contact is appropriate speech is fluent spontaneous . He reports his mood is better he feels safe. s. He is endorsing no acute suicidal or homicidal ideation intent or plan. He is reporting no auditory or visual hallucinations no delusions. There is no evidence of psychosis. He does not appear hypomanic or manic. Insight and judgment improving. He remains oriented to person place and date. He demonstrates no verbal or physical aggressiveness. Plan:Discharge today. He will return home to his own residence. Social work will arrange outpatient mental health follow-up he is requesting professional counseling Center if possible. He will continue on Lexapro 20 mg daily. He does not wish to participate in inpatient chemical dependency treatment to address his substance use issues he will meet with his sponsor go to NA meetings and follow up with outpatient mental health services. The patient appears to have stabilized and is appropriate for transition to outpatient care. . He is instructed to return to the hospital with any acute safety concerns.
--- NOTE | 2017-04-20 09:34 | PN ---
DATE OF SERVICE: 04/19/2016 This 31-year-old gentleman was admitted for psychiatric evaluation. Also complaining of blistered lesions and also history of herpetic lesions in the genitourinary and genital area. No chest pain or palpitations. No fever. On exam, alert, oriented x3. Pulse 77, blood pressure 130/70, respirations 18, temperature 98.2, pulse ox normal. HEENT: Conjunctivae normal. NECK: No JVD. CARDIOVASCULAR: S1 and S2 muffled. LUNGS: Breath sounds diminished at the bases. No rhonchi. ABDOMEN: Soft, nontender. EXTREMITIES: Legs, no edema. No swelling. NERVOUS SYSTEM: No focal deficits. : Examination of the periarea, thickened skin present, no active blistered lesions noted. ASSESSMENT: 1. 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 2. Acute opiate withdrawal. 3. Continued ongoing nicotine dependence. 4. Anxiety, depression, not otherwise specified. 5. History of hepatitis C. RECOMMENDATIONS AND DISCUSSION: In this 31-year-old gentleman who presented with multiple complex medical problems, we will monitor the patient closely, continue current medications. Recommend course of Valtrex and continue to monitor. Otherwise see orders for details. Further recommendations to follow.
[2017-04-20] MEDS: ACYCLOVIR 200 MG CAP PO SCH (10:06)
[2017-04-20] MEDS: NICOTINE 21MG/24HR PATCH TRANSDERM SCH (10:07)
[2017-04-20] MEDS: GABAPENTIN 100 MG CAP PO SCH (10:07)
[2017-04-20] MEDS: ESCITALOPRAM 20 MG TAB PO SCH (10:07)
== END 2017-04-20 10:13 | disposition home or self-care (01) | DRG 885 ==
LOC: EC 22:48 → 3MHU 04-18 02:39
PROVIDERS: ADMIT Psychiatry & Neurology Psychiatry; ATTEND Psychiatry & Neurology Psychiatry
DX: F33.2 Major depressive disorder, recurrent severe without psychotic features (principal); R45.851 Suicidal ideations; F11.23 Opioid dependence with withdrawal; A60.00 Herpesviral infection of urogenital system, unspecified; F41.0 Panic disorder [episodic paroxysmal anxiety]; F17.200 Nicotine dependence, unspecified, uncomplicated; G25.81 Restless legs syndrome; B19.20 Unspecified viral hepatitis C without hepatic coma; Z91.5 Personal history of self-harm; Z81.1 Family history of alcohol abuse and dependence; Z79.899 Other long term (current) drug therapy
CPT/HCPCS: 80306; 82075; 99285

== ENCOUNTER 2024-05-06 20:35 | Emergency (ER) | payer OTHER ==
[2024-05-06 20:55] VITALS: TEMP 98
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
--- NOTE | 2024-05-06 21:54 | XR ---
EXAMINATION TYPE: XR hand complete LT, XR wrist complete LT DATE OF EXAM: 05/06/2024 9:41 PM CLINICAL INDICATION:Male, 38 years old with history of fall, pain; COMPARISON: None TECHNIQUE: XR hand complete LT, XR wrist complete LT Frontal, lateral and oblique views were obtained . FINDINGS: Normal alignment of the visualized joints. No acute osseous pathology is identified. No e vidence of soft tissue swelling. No significant degeneration IMPRESSION: No acute osseous pathology. .
[2024-05-06 22:22] VITALS: BP 137/91; PULSE 63; RESP 18
[2024-05-06] MEDS: KETOROLAC 15 MG/ML 1 ML VIAL IM STA (22:24)
== END 2024-05-06 22:39 | disposition home or self-care (01) ==
LOC: EC 20:35
DX: S60.512A Abrasion of left hand, initial encounter (principal); F17.290 Nicotine dependence, other tobacco product, uncomplicated; F11.90 Opioid use, unspecified, uncomplicated; F15.90 Other stimulant use, unspecified, uncomplicated; W19.XXXA Unspecified fall, initial encounter; Y93.55 Activity, bike riding
CPT/HCPCS: 73110; 73130; 99283; 96372; J1885

== ENCOUNTER → 2024-05-10 | Outpatient (CLI) | payer OTHER ==
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
== END | disposition home or self-care (01) ==
LOC: RADCTMAIN 16:05
PROVIDERS: ATTEND Family Medicine
DX: S52.502A Unspecified fracture of the lower end of left radius, initial encounter for closed fracture (principal)

== ENCOUNTER 2024-05-20 14:29 | Emergency (ER) | payer OTHER ==
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
[2024-05-20 17:05] VITALS: BP 128/82; PULSE 72; RESP 18; TEMP 98.1
== END 2024-05-20 19:00 | disposition home or self-care (01) ==
LOC: EC 14:29
DX: S62.142A Displaced fracture of body of hamate [unciform] bone, left wrist, initial encounter for closed fracture (principal); F17.290 Nicotine dependence, other tobacco product, uncomplicated; X58.XXXA Exposure to other specified factors, initial encounter
CPT/HCPCS: 29125; 99283

== ENCOUNTER → 2024-06-27 | Outpatient (CLI) | payer OTHER ==
--- NOTE | 2024-07-29 12:11 | US ---
Site ID [facility] Michael Santos ID [id number] Age/Gender: 38Y, N/A Order # N/A Procedure US LIVER Date 06/27/2024 8:45:00 AM INDICATION: Patient age: 38-year-old Reason for study: Cirrhosis COMPARISON: None.. TECHNIQUE: Multiple grayscale and color doppler ultrasound images of the right upper abdomen obtained utilizing transabdominal imaging. FINDINGS: PANCREAS: The visualized portions of the pancreas are unremarkable. LIVER: The liver demonstrates a normal echotexture. There is no evidence of dilated ducts, cystic structures , or solid mass. No surface nodularity identified. Measures 15.5 cm in greatest dimension. GALLBLADDER: The gallbladder is without evidence of wall thickening, pericholecystic fluid, or cholelithiasis. The common duct measures approximately 4 mm. Per pest control service technician, the sonographic Garcia's sign was negative . RIGHT KIDNEY: The right kidney measures 10.4 x 3.6 x 5.1 cm, without evidence of hydronephrosis, shadowing calculus , or contour deforming solid mass. Renal parenchymal echogenicity is within normal limits. IMPRESSION: 1. No sonographic evidence for acute process. 2. No overt cirrhotic appearance of the liver. No focal lesion identified.
== END | disposition home or self-care (01) ==
LOC: RADUSWWP 12:00
PROVIDERS: ATTEND Internal Medicine Gastroenterology
DX: B18.2 Chronic viral hepatitis C
CPT/HCPCS: 76705

== ENCOUNTER → 2024-06-28 | Outpatient (CLI) | payer OTHER | END | disposition home or self-care (01) | LOC: LABWHC1 09:06 | DX: B18.2 Chronic viral hepatitis C (principal) | CPT/HCPCS: 36415; 81596; 82105; 87522 ==

== ENCOUNTER → 2024-08-10 | Outpatient (CLI) | payer OTHER | END | disposition home or self-care (01) | LOC: LABWHC1 16:16 | PROVIDERS: ATTEND Nurse Practitioner Family | DX: B18.2 Chronic viral hepatitis C (principal) | CPT/HCPCS: 36415; 87902 ==